=== PATIENT | male | born 1990 | race African-American/Black ===

== ENCOUNTER 2018-10-30 08:10 | Emergency (ER) | payer SELFPAY ==
[~2018-10-30] VITALS: Ht 167.6 cm; Wt 79.8 kg
[2018-10-30 09:25] LABS: CALCIUM 9.8 mg/dL (8.5-10.1); CHLORIDE SERUM 101 mmol/L (98-107); GFR1 > 60 mL/min; GLUCOSE SERUM 118 mg/dL (74-106); POTASSIUM SERUM 3.9 mmol/L (3.5-5.1); SODIUM SERUM 138 mmol/L (136-145)
[2018-10-30 09:35] LABS: ALBUMIN 4.6 g/dL (3.4-5.0); ALKALINE PHOSPHATASE 83 U/L (46-116); ALT/SGPT 99 U/L (16-63); AST/SGOT 29 U/L (15-37); BILIRUBIN TOTAL 0.7 mg/dL (0.20-1.00); LIPASE 104 IU/L (73-393)
[2018-10-30 09:36] LABS: TOTAL PROTEIN, SERUM 8.5 g/dL (6.4-8.2)
[2018-10-30 10:34] LABS: PLATELET COUNT 256 x10^3mcL (130-400); RED CELL DISTRIBUTION WIDTH 12.3 % (11.5-14.5)
[2018-10-30 10:37] LABS: BASOPHIL % 0 % (0-2)
[2018-10-30 11:14] LABS: microscopic required? YES
[2018-10-30 11:15] LABS: urine erythrocyte NEGATIVE (NEGATIVE)
[2018-10-30 13:13] VITALS: BP 132/86
[2018-10-30 15:15] LABS: AMPHETAMINE QUAL UR NONE DETECTED (See below)
== END 2018-10-30 13:13 | disposition left against medical advice (07) ==
LOC: ED 08:10
PROVIDERS: Emergency Medicine
DX: R11.10 Vomiting, unspecified (principal); R10.9 Unspecified abdominal pain; D72.829 Elevated white blood cell count, unspecified; K42.9 Umbilical hernia without obstruction or gangrene; F17.210 Nicotine dependence, cigarettes, uncomplicated
CPT/HCPCS: 84439; 99406; J2405; J2765; J3490; J7030